=== PATIENT | male | born 1960 | race Caucasian/White ===

== ENCOUNTER 2020-12-24 10:47 | Emergency (ER) | payer OTHER ==
--- OUTSIDE RECORDS SUMMARY | 2020-12-24 10:52 | XMS REPORT | Continuity of Care Document ---
:1960 Author Organization [facility] t Address [address] [place] [address] Care Team Providers Name Role Phone Jose Luis, Freddy Main Attending Clinician Unavailable Su Foy MD Attending Clinician Radiology Attending Clinician Unavailable Lori Naylor Attending Clinician Doctor Unassigned, Name Attending Clinician Unavailable Problems This patient has no known problems. Allergies, Adverse Reactions, Alerts This patient has no known allergies or adverse reactions. Medications This patient has no known medications. Procedures This patient has no known procedures. Encounters Start End Encounter Admission Attending Care Care Encounter Source Date/Time Date/Time Type Type Clinicians Facility Department ID 2020-08-12 2020-08-12 In [place] Nikki Amaya [facility] [id number] 14:40:35 14:55:35 Visit Lab Main [place] [id number] [place] [id number] [facility] [id number] [address] 2020-08-06 2020-08-06 [facility] Joanne Foy [facility] [id number] 14:38:34 23:59:00 Encounter M [place] [id number] [place] [id number] [place] [id number] 2020-06-09 2020-06-09 [facility] Radiology [facility] [id number] 12:35:52 23:59:00 Encounter [place] [id number] [place] [id number] [place] [id number] 2020-04-22 2020-04-22 Emergency [place], [place] [id number] 10:44:00 12:04:00 Katharina Little [id number] [place] [id number] [place] [id number] 2020-04-22 2020-04-22 Orders Doctor [place] [id number] 00:00:00 00:00:00 Only Unassigned, SHAINA [id number] [place] [facility] [id number] Results This patient has no known results.
[2020-12-24] MEDS ORDERED: HYDROCODONE/APAP 10/325 TAB ONE (12:38)
[2020-12-24] MEDS ORDERED: LIDOCAINE 1% MPF 30 ML VIAL ONE (12:38)
--- NOTE | 2020-12-24 14:54 | ER ---
Nurse's Notes [facility] Name: Shayne Jean Baptiste Age: 60 yrs Sex: Male : 1960 Arrival Date: 12/24/2020 Time: 11:13 Bed 27 Private MD: ELIE MICHAEL Diagnosis: Sebaceous cyst Presentation: 12/24 11:14 Chief complaint: Patient states: sent by PCP to get his back abscess checked out x 2 sv weeks. Coronavirus screen: Client denies travel out of the [place] in the last 14 days. At this time, the client does not indicate any symptoms associated with coronavirus-19. Ebola Screen: No symptoms or risks identified at this time. Risk Assessment: Do you want to hurt yourself or someone else? Patient reports no desire to harm self or others. Onset of symptoms was November 2020. 11:14 Method Of Arrival: Ambulatory sv 11:14 Initial Sepsis Screen: Does the patient meet any 2 criteria? No. Patient's initial sv sepsis screen is negative. Does the patient have a suspected source of infection? No. Patient's initial sepsis screen is negative. 11:14 Acuity: DEVI 2 sv Historical: - Allergies: 11:15 Darvon; sv - PMHx: 11:15 Prostate cancer; Cirrhosis of liver; Hep C; sv - PSHx: 11:15 Michael hip replacement; sv - Immunization history:: Client reports having NOT received the Covid vaccine. - Social history:: Smoking status: Patient reports the use of cigarette tobacco products, smokes one-half pack cigarettes per day. Screenin:10 Abuse screen: Denies threats or abuse. Nutritional screening: No deficits noted. ch5 Tuberculosis screening: No symptoms or risk factors identified. Fall Risk None identified. Assessment: 12:10 Pain: Complains of pain in back Quality of pain is described as tender. ch5 Vital Signs: 11:14 BP 205 / 77; Pulse 64; Resp 20; Temp 97.8(TE); Pulse Ox 99% ; Weight 88.45 kg; Height 6 sv ft. 1 in. (185.42 cm); Pain 6/10; 12:20 BP 169 / 80; Pulse 60; Resp 18; Pulse Ox 99% on R/A; Pain 6/10; ch5 15:14 BP 160 / 53; Pulse 62; Resp 20; Pulse Ox 99% on R/A; Pain 0/10; ch5 11:14 Body Mass Index 25.73 (88.45 kg, 185.42 cm) ED Course: 11:13 Patient arrived in ED. am2 11:14 ELIE MICHAEL is Private Physician. am2 11:14 Arm band placed on. sv 11:15 Triage completed. 11:18 [facility] 11:18 Carlos Medina MD is Attending Physician. [facility] 11:19 Justus Dominguez, RN is Primary Nurse. ch5 12:10 Patient has correct armband on for positive identification. Placed in gown. Bed in low ch5 position. Call light in reach. 13:15 Assist provider with I \T\ D: of an abscess on Abscess to Back. ch5 13:15 Patient did not have IV access during this emergency room visit. ch5 15:12 Dressing applied to back. Pt denies needs. ch5 Administered Medications: 12:18 Drug: [place] (HYDROcodone-acetaminophen) 10 mg-325 mg 1 tabs Route: PO; ch5 12:30 Follow up: Response: Pain is decreased ch5 15:09 Drug: Lidocaine (1 %) 20 ml {Note: Administered by Neptali.} Volume: 20 ml; Route: ch5 Infiltration; Site: affected area; 15:14 Follow up: Response: Pain is decreased ch5 Outcome: 14:54 Discharge ordered by . [facility] 15:32 Patient left the ED. ch5 Signatures: Olive Olson RN RN Neptali Lewis PA PA [facility] Trena Elder formerly [facility] Justus Dominguez, RN RN ch5 Corrections: (The following items were deleted from the chart) 11:16 11:14 Temp 97.8F Temporal; sv sv 11:17 11:14 Acuity: DEVI 3 sv sv 11:17 11:14 Pulse 64bpm; Resp 20bpm; Pulse Ox 99%; Temp 97.8F Temporal; 88.45 kg; Height 6 sv ft. 1 in.; BMI: 25.7; Pain 6/10; sv
--- NOTE | 2020-12-24 14:55 | EDPHYS ---
Physician Documentation [facility] Name: Shayne Jean Baptiste Age: 60 yrs Sex: Male : 1960 Arrival Date: 12/24/2020 Time: 11:13 Bed 27 Private MD: ELIE MICHAEL ED Physician Carlos Medina HPI: 12/24 11:40 This 60 yrs old Male presents to ER via Ambulatory with complaints of Abscess.jmm 11:40 the patient presents with a swollen area of the back. Onset: The symptoms/episode jmm began/occurred gradually, 2 week(s) ago. Possible cause(s): unknown. Associated signs and symptoms: Pertinent positives: erythema, swelling, Pertinent negatives: discharge, drainage, fever, shortness of breath. Modifying factors: the symptoms are alleviated by nothing, the symptoms are aggravated by nothing. Historical: - Allergies: 11:15 Darvon; sv - PMHx: 11:15 Prostate cancer; Cirrhosis of liver; Hep C; sv - PSHx: 11:15 Michael hip replacement; sv - Immunization history:: Client reports having NOT received the Covid vaccine. - Social history:: Smoking status: Patient reports the use of cigarette tobacco products, smokes one-half pack cigarettes per day. ROS: 11:40 Constitutional: Negative for fever, chills, and weight loss, Cardiovascular: Negative jmm for chest pain, palpitations, and edema, Respiratory: Negative for shortness of breath, cough, wheezing, and pleuritic chest pain, Abdomen/GI: Negative for abdominal pain, nausea, vomiting, diarrhea, and constipation. 11:40 Skin: Positive for erythema. 11:40 All other systems are negative. Exam: 11:40 Constitutional: This is a well developed, well nourished patient who is awake, alert, jmm and in no acute distress. Head/Face: atraumatic. Eyes: EOMI, no conjunctival erythema appreciated ENT: Moist Mucus Membranes Neck: Trachea midline, Supple Chest/axilla: Normal chest wall appearance and motion. Cardiovascular: Regular rate and rhythm. No edema appreciated Respiratory: Normal respirations, no respiratory distress appreciated Abdomen/GI: Non distended, soft Back: Normal ROM 11:40 Skin: A fluctuant abscess is noted to the left lower lumbar region of the back, no purulent drainage is appreciated, no surrounding induration or erythema appreciated. 11:40 Neuro: Orientation: is normal, Mentation: is normal, Memory: is normal. 11:40 Psych: Behavior/mood is pleasant, cooperative. Vital Signs: 11:14 BP 205 / 77; Pulse 64; Resp 20; Temp 97.8(TE); Pulse Ox 99% ; Weight 88.45 kg; Height 6 sv ft. 1 in. (185.42 cm); Pain 6/10; 12:20 BP 169 / 80; Pulse 60; Resp 18; Pulse Ox 99% on R/A; Pain 6/10; ch5 15:14 BP 160 / 53; Pulse 62; Resp 20; Pulse Ox 99% on R/A; Pain 0/10; ch5 11:14 Body Mass Index 25.73 (88.45 kg, 185.42 cm) sv Procedures: 14:47 I \T\ D: Incision and drainage was performed for an abscess of the back Prepped with [facility] Betadine, Anesthetized with 10 ml's 1% Lidocaine. Incised with #11 blade. Drained moderate amount purulent fluid. Loculations removed. Abscess cavity explored. Packed with iodoform gauze, Dressing: sterile 4x4 gauze, the patient tolerated the procedure well. MDM: 11:20 Patient medically screened. sangeetha 14:46 Data reviewed: vital signs, nurses notes. Counseling: I had a detailed discussion with eryn the patient and/or guardian regarding: the historical points, exam findings, and any diagnostic results supporting the discharge/admit diagnosis, the need for outpatient follow up, to return to the emergency department if symptoms worsen or persist or if there are any questions or concerns that arise at home. 14:48 ED course: Patient is alert nontoxic in appearance in the ED. Large amount of purulent [facility] drainage was drained from the sebaceous cyst. Patient was asked for general surgeon for further evaluation otherwise given strict return precautions. Patient understood and agrees plan of care.. 12/24 11:31 Order name: Incision \T\ Drainage Setup; Complete Time: 12:18 [facility] 12/24 13:28 Order name: Wound Care; Complete Time: 15:13 [facility] Administered Medications: 12:18 Drug: [place] (HYDROcodone-acetaminophen) 10 mg-325 mg 1 tabs Route: PO; ch5 12:30 Follow up: Response: Pain is decreased ch5 15:09 Drug: Lidocaine (1 %) 20 ml {Note: Administered by Neptali.} Volume: 20 ml; Route: ch5 Infiltration; Site: affected area; 15:14 Follow up: Response: Pain is decreased ch5 Disposition: 12/25 05:22 Co-signature as Attending Physician, Carlos Medina MD I agree with the assessment and sangeetha plan of care. Disposition Summary: 12/24/20 14:54 Discharge Ordered Location: Home [facility] Condition: Stable [facility] Diagnosis - Sebaceous cyst [facility] Followup: [facility] - With: Private Physician - When: 2 - 3 days - Reason: Recheck today's complaints, Continuance of care, Re-evaluation by your physician Discharge Instructions: - Discharge Summary Sheet [facility] - Incision and Drainage, Care After [facility] Forms: - Medication Reconciliation Form [facility] - Thank You Letter [facility] - Antibiotic Education [facility] - Prescription Opioid Use [facility] Prescriptions: - Doxycycline Hyclate 100 mg Oral Tablet - take 1 tablet by ORAL route every 12 hours; 20 tablet; Refills: 0, Product [facility] Selection Permitted Signatures: Olive Olson, RN Carlos Dean MD MD cha Mickail, Joel, PA PA [facility] Justus Dominguez RN RN ch5
[2020-12-24 15:41] VITALS: TEMP 97.8; O2SAT 99
[2020-12-24 15:44] VITALS: BP 160/53
== END 2020-12-24 15:32 | disposition home or self-care (01) ==
LOC: ER 10:47
PROC: 0H96XZZ Drainage of Back Skin, External Approach (ICD-10-PCS; principal; 2020-12-24)
DX: L72.3 Sebaceous cyst (principal); F17.210 Nicotine dependence, cigarettes, uncomplicated; Z88.5 Allergy status to narcotic agent
CPT/HCPCS: 99283

== ENCOUNTER 2021-11-09 18:42 | Emergency (ER) | payer OTHER ==
[2021-11-09 20:33] LABS: Absolute Lymphocytes (CBC) 1.9 K/uL (0.7-4.9); Hematocrit 35.9 % (39.6-49.0); Lymphocytes % 14.1 % (15.3-44.8); MCV 91.3 fL (80-100); MPV 9.2 fL (7.6-11.3); RBC Red Blood Cell Count 3.93 M/uL (4.33-5.43)
[2021-11-09] MEDS ORDERED: MORPHINE 4 MG/ML SYR ONE (20:35)
[2021-11-09] MEDS ORDERED: NA CHLORIDE 0.9% 250 ML ONE (20:35)
[2021-11-09] MEDS ORDERED: ONDANSETRON 4 MG/2 ML VIAL ONE (20:35)
[2021-11-09] MEDS ORDERED: NA CHLORIDE 0.9% 1,000 ML ONE (20:35)
[2021-11-09] MEDS ORDERED: NA CHLORIDE 0.9% 100 ML ONE (20:35)
[2021-11-09] MEDS ORDERED: VANCOMYCIN 1 GM/VIAL ONE (20:35)
[2021-11-09] MEDS ORDERED: PIPERACIL/TAZO 3.375 GM VIAL IV ONE (20:36)
[2021-11-09 20:44] LABS: Protime INR 1.24
[2021-11-09 20:45] LABS: Albumin 2.8 g/dL (3.4-5.0); Bilirubin Total 0.4 mg/dL (0.2-1.0); Protein, Total 7.4 g/dL (6.4-8.2)
[2021-11-09 20:49] LABS: Urine Blood Negative (Negative); Urine Glucose Negative (Negative); Urine Protein Negative (Negative)
[2021-11-09] MEDS ORDERED: KCL 20 MEQ/100 mL IVPB 100 ML IV ONE (21:16)
--- NOTE | 2021-11-09 21:42 | EDPHYS ---
Physician Documentation [facility] Name: Shayne Jean Baptiste Age: 61 yrs Sex: Male : 1960 Arrival Date: 11/09/2021 Time: 18:43 Bed 8 Private MD: ED Physician Benjy Cox HPI: 11/09 19:34 This 61 yrs old Male presents to ER via Ambulatory with complaints of Abdominal Pain, mh7 abnormal CT. 19:34 The patient presents with abdominal pain in the left lower quadrant. Onset: The mh7 symptoms/episode began/occurred 1 week(s) ago. The symptoms do not radiate. Associated signs and symptoms: Pertinent positives: diarrhea, Pertinent negatives: blood in stools, fever, nausea, vomiting. The symptoms are described as intermittent, vague, waxing/waning. Modifying factors: The symptoms are alleviated by nothing, the symptoms are aggravated by nothing. Severity of pain: At its worst the pain was moderate 4 day(s) ago, in the emergency department the pain has improved moderately. The patient has been recently seen by a physician: Admitted at OSH and discharged 2 days ago . Historical: - Allergies: 18:46 Darvon; ss - PMHx: 18:46 cirrhosis of liver; HEP C; Prostate Cancer; ss - PSHx: 18:46 Michael hip replacement; ss - Immunization history:: Adult Immunizations unknown. - Social history:: Smoking status: Patient reports the use of cigarette tobacco products, smokes one pack cigarettes per day. ROS: 19:34 Constitutional: Negative for fever, chills, and weight loss, Eyes: Negative for injury, mh7 pain, redness, and discharge, ENT: Negative for injury, pain, and discharge, Neck: Negative for injury, pain, and swelling, Cardiovascular: Negative for chest pain, palpitations, and edema, Respiratory: Negative for shortness of breath, cough, wheezing, and pleuritic chest pain, Back: Negative for injury and pain, : Negative for injury, bleeding, discharge, and swelling, MS/Extremity: Negative for injury and deformity, Skin: Negative for injury, rash, and discoloration, Neuro: Negative for headache, weakness, numbness, tingling, and seizure, Psych: Negative for depression, anxiety, suicide ideation, homicidal ideation, and hallucinations, Allergy/Immunology: Negative for hives, rash, and allergies, Endocrine: Negative for neck swelling, polydipsia, polyuria, polyphagia, and marked weight changes, Hematologic/Lymphatic: Negative for swollen nodes, abnormal bleeding, and unusual bruising. Exam: 19:34 Head/Face: Normocephalic, atraumatic. Eyes: Pupils equal round and reactive to light, mh7 extra-ocular motions intact. Lids and lashes normal. Conjunctiva and sclera are non-icteric and not injected. Cornea within normal limits. Periorbital areas with no swelling, redness, or edema. Neck: Trachea midline, no thyromegaly or masses palpated, and no cervical lymphadenopathy. Supple, full range of motion without nuchal rigidity, or vertebral point tenderness. No Meningismus. Chest/axilla: Normal chest wall appearance and motion. Nontender with no deformity. No lesions are appreciated. Cardiovascular: Regular rate and rhythm with a normal S1 and S2. No gallops, murmurs, or rubs. Normal PMI, no JVD. No pulse deficits. Respiratory: Lungs have equal breath sounds bilaterally, clear to auscultation and percussion. No rales, rhonchi or wheezes noted. No increased work of breathing, no retractions or nasal flaring. 19:34 Back: No spinal tenderness. No costovertebral tenderness. Full range of motion. Skin: Warm, dry with normal turgor. Normal color with no rashes, no lesions, and no evidence of cellulitis. MS/ Extremity: Pulses equal, no cyanosis. Neurovascular intact. Full, normal range of motion. Neuro: Awake and alert, GCS 15, oriented to person, place, time, and situation. Cranial nerves II-XII grossly intact. Motor strength 5/5 in all extremities. Sensory grossly intact. Cerebellar exam normal. Normal gait. Psych: Awake, alert, with orientation to person, place and time. Behavior, mood, and affect are within normal limits. 19:34 Constitutional: The patient appears in no acute distress, alert, awake, uncomfortable. 19:34 Abdomen/GI: Inspection: abdomen appears normal, Bowel sounds: normal, in all quadrants, Palpation: moderate abdominal tenderness, in the left lower quadrant, mass, is not appreciated, rebound tenderness, is not appreciated, voluntary guarding, is not appreciated, involuntary guarding, is not appreciated, no appreciated organomegaly, Indicators: McBurney's point is not tender, Stevens's sign is negative, Rovsing's sign is negative, Obturator sign is negative, Psoas sign is negative, Liver: no appreciated palpable abnormalities, Hernia: not appreciated. Vital Signs: 19:03 BP 145 / 71; Pulse 77; Resp 18; Temp 97.8; Pulse Ox 97% on R/A; Weight 86.18 kg; Height ph 6 ft. 1 in. (185.42 cm); 19:14 BP 142 / 72; Pulse 82; Resp 18 S; Pulse Ox 98% on R/A; aa9 21:23 BP 141 / 73; Pulse 70; Resp 18; Pulse Ox 96% on R/A; kd3 22:49 BP 140 / 63; Pulse 70; Resp 18 S; Pulse Ox 95% on R/A; as6 19:03 Body Mass Index 25.07 (86.18 kg, 185.42 cm) ph MDM: 21:33 Differential diagnosis: bowel obstruction, diverticulitis, Irritable bowel syndrome, mh7 non-specific abd pain, Perf. Duodenal Ulcer, Pyelonephritis, Ureterolithiasis, urinary tract infection. Data reviewed: vital signs, nurses notes, old medical records, lab test result(s), CBC, electrolytes, EKG, CT Abdomen/pelvis done outpatient here. Data interpreted: Pulse oximetry: on room air is 96 %. Interpretation: normal. Counseling: I had a detailed discussion with the patient and/or guardian regarding: the historical points, exam findings, and any diagnostic results supporting the discharge/admit diagnosis, lab results, radiology results, the need to transfer to another facility, for higher level of care, [facility] does not immediately have the required specialist. Response to treatment: the patient's symptoms have mildly improved after treatment. Physician consultation: Dirk Stanley MD was contacted at 19:50, regarding patient's condition, after a discussion of the case, a recommendation for transfer for higher level of care is made, Recommended transfer for interventional radiology treatment for this and will need colorectal surgery follow up.. ED course: Patient requested transfer to [facility] but no bed availability, then [facility] but no bed availability. He then agreed to try transfer [facility] . 21:42 Patient medically screened. mh7 11/09 18:44 Order name: CBC with Diff; Complete Time: 20:39 11/09 18:44 Order name: CMP; Complete Time: 20:55 11/09 18:44 Order name: Lipase; Complete Time: 20:55 11/09 18:44 Order name: SARS-COV-2 RT PCR (Document "Date of Onset" if Symptomatic); Complete Time: rn 21:31 11/09 18:44 Order name: Protime (+inr); Complete Time: 20:55 11/09 18:44 Order name: Ptt, Activated; Complete Time: 20:55 19:51 Order name: Blood Culture [facility] 11/09 19:51 Order name: Lactate; Complete Time: 20:55 [facility] 11/09 20:50 Order name: Urine Dipstick-Ancillary; Complete Time: 20:55 ED[facility] 11/09 18:44 Order name: IV Saline Lock; Complete Time: 20:24 11/09 18:44 Order name: Labs collected and sent; Complete Time: 20:24 11/09 19:24 Order name: EKG; Complete Time: 19:24 [facility] 11/09 19:24 Order name: EKG - Nurse/Tech; Complete Time: 21:03 [facility] 11/09 19:25 Order name: Urine Dipstick-Ancillary (obtain specimen); Complete Time: 20:48 [facility] Administered Medications: 20:48 Drug: morphine 4 mg Route: IVP; Infused Over: 4 mins; Site: left antecubital; kd3 21:02 Follow up: Response: No adverse reaction kd3 20:48 Drug: Zofran (Ondansetron) 4 mg Route: IVP; Site: left antecubital; kd3 21:02 Follow up: Response: No adverse reaction kd3 22:58 Follow up: Response: No adverse reaction kd3 20:48 Drug: Zosyn (piperacillin-tazobactam) 3.375 grams Route: IVPB; Infused Over: 60 mins; kd3 Site: left antecubital; 21:02 Follow up: Response: No adverse reaction; IV Status: Completed infusion kd3 20:49 Drug: NS 0.9% 1000 ml Route: IV; Rate: 1000 ml; Site: left antecubital; kd3 23:22 Follow up: IV Status: Completed infusion kd3 21:02 Drug: vancoMYCIN 1 grams Route: IVPB; Infused Over: 2 hrs; Site: left antecubital; kd3 22:58 Follow up: Response: No adverse reaction; IV Status: Completed infusion kd3 21:13 Drug: Potassium Chloride 20 mEq Route: IV; Rate: per protocol; Site: left antecubital; kd3 22:57 Follow up: Response: No adverse reaction; IV Status: Completed infusion kd3 23:22 Follow up: IV Status: Completed infusion kd3 Disposition Summary: 11/09/21 21:42 Transfer Ordered Transfer Location: [place] [id number] Reason: [facility] care [facility] Condition: Stable [facility] Problem: [facility] Symptoms: are unchanged [facility] Accepting Physician: [facility](11/09/21 23:22) kd3 Diagnosis - Colon abscess with pneumoperitoneum [facility] Forms: - Medication Reconciliation Form [facility] - SBAR form 7 Signatures: Dispatcher [employer] EDLalo Mullins MD MD rn Smirch, Shelby, RN RN ss Hall, Patricia, RN RN ph Holmes, Maurice, MD MD Bina Luu RN RN kd3 Corrections: (The following items were deleted from the chart) 21:49 21:42 Dr. Hughes [email or web address] 23:22 21:49 [place] [id number] kd3
--- NOTE | 2021-11-09 21:42 | ER ---
Nurse's Notes [facility] Name: Shayne Jean Baptiste Age: 61 yrs Sex: Male : 1960 Arrival Date: 11/09/2021 Time: 18:43 Bed 8 Private MD: Diagnosis: Colon abscess with pneumoperitoneum Presentation: 11/09 18:44 Chief complaint: Patient states: Outpatient CT showed possible "colon abscess with free ss air.". Coronavirus screen: Client denies travel out of the [place] in the last 14 days. Ebola Screen: Patient denies exposure to infectious person. Patient denies travel to an Ebola-affected area in the 21 days before illness onset. 18:44 Method Of Arrival: Ambulatory ss 18:44 Acuity: DEVI 3 ss 19:05 Initial Sepsis Screen: Does the patient meet any 2 criteria? No. Patient's initial ph sepsis screen is negative. Does the patient have a suspected source of infection? Yes: Acute abdominal pain. Risk Assessment: Do you want to hurt yourself or someone else? Patient reports no desire to harm self or others. Onset of symptoms was November 09, 2021. Triage Assessment: 19:04 General: Appears in no apparent distress. uncomfortable, Behavior is calm, cooperative, ph appropriate for age, Denies fever. Pain: Complains of pain in left lower quadrant. Neuro: Level of Consciousness is awake, alert, obeys commands, Oriented to person, place, time, situation. Cardiovascular: Capillary refill < 3 seconds in bilateral fingers Patient's skin is warm and dry. Respiratory: Airway is patent Respiratory effort is even, unlabored. GI: Abdomen is round Reports lower abdominal pain. Derm: Skin is pink, warm \\T\\ dry. Musculoskeletal: Circulation, motion, and sensation intact. Range of motion: intact in all extremities. Historical: - Allergies: 18:46 Darvon; ss - PMHx: 18:46 cirrhosis of liver; HEP C; Prostate Cancer; ss - PSHx: 18:46 Michael hip replacement; ss - Immunization history:: Adult Immunizations unknown. - Social history:: Smoking status: Patient reports the use of cigarette tobacco products, smokes one pack cigarettes per day. Screenin:05 Abuse screen: Denies threats or abuse. Denies injuries from another. Nutritional ph screening: No deficits noted. Tuberculosis screening: No symptoms or risk factors identified. Fall Risk None identified. Assessment: 19:11 General: Appears in no apparent distress. uncomfortable, Behavior is calm, cooperative, aa9 states I went to do a follow up appt with my dr for diverticulitis. They told me to come here because of an abscess. Pain: Complains of pain in left lower quadrant Pain currently is 7 out of 10 on a pain scale. 21:24 Reassessment: Patient appears in no apparent distress at this time. Patient and/or kd3 family updated on plan of care and expected duration. Pain level reassessed. Patient is alert, oriented x 3, equal unlabored respirations, skin warm/dry/pink. Patient states feeling better. Patient states symptoms have improved. Vital Signs: 19:03 BP 145 / 71; Pulse 77; Resp 18; Temp 97.8; Pulse Ox 97% on R/A; Weight 86.18 kg; Height ph 6 ft. 1 in. (185.42 cm); 19:14 BP 142 / 72; Pulse 82; Resp 18 S; Pulse Ox 98% on R/A; aa9 21:23 BP 141 / 73; Pulse 70; Resp 18; Pulse Ox 96% on R/A; kd3 22:49 BP 140 / 63; Pulse 70; Resp 18 S; Pulse Ox 95% on R/A; as6 19:03 Body Mass Index 25.07 (86.18 kg, 185.42 cm) ph ED Course: 18:43 Patient arrived in ED. ss 18:46 Triage completed. ss 19:03 Benjy Cox MD is Attending Physician. mh7 19:03 Arm band placed on Patient placed in an exam room, on a stretcher, on pulse oximetry. ph 19:05 Patient has correct armband on for positive identification. Bed in low position. Call light in reach. Side rails up X 1. Pulse ox on. NIBP on. Door closed. Noise minimized. 19:07 Jung Bello, GERALDO is Primary Nurse. as6 20:19 initiated a transfer with Cami Callejas from [facility] Transfer Center. mw2 20:24 Lipase Sent. kd3 20:24 CMP Sent. kd3 20:24 CBC with Diff Sent. kd3 20:24 SARS-COV-2 RT PCR (Document "Date of Onset" if Symptomatic) Sent. kd3 20:24 Ptt, Activated Sent. kd3 20:24 Protime (+inr) Sent. kd3 20:25 Lactate Sent. kd3 20:25 Blood Culture Adult (2) Sent. kd3 20:37 [facility] denied due to [place]. mw2 20:39 initiated a transfer with Antwan from [facility] Transfer Center. mw2 20:50 [facility] denied due to capacity. mw2 20:55 initiated a transfer with Arleneamanda Rosado from [facility] Transfer [place]. mw2 21:[address] Cox with Dr. Fatima from [facility]. mw2 21:[address] Cox with the Hospitalist from [facility]. mw2 22:31 administrative approval given by Arlene Rosado/ patient has been accepted to [address] bed 669/ Dr. Guzmán accepted the patient in transfer/report to be called to [phone]. 23:21 No provider procedures requiring assistance completed. Inserted saline lock: 22 gauge kd3 in left antecubital area, using aseptic technique. Blood collected. Patient transferred, IV remains in place. Administered Medications: 20:48 Drug: morphine 4 mg Route: IVP; Infused Over: 4 mins; Site: left antecubital; kd3 21:02 Follow up: Response: No adverse reaction kd3 20:48 Drug: Zofran (Ondansetron) 4 mg Route: IVP; Site: left antecubital; kd3 21:02 Follow up: Response: No adverse reaction kd3 22:58 Follow up: Response: No adverse reaction kd3 20:48 Drug: Zosyn (piperacillin-tazobactam) 3.375 grams Route: IVPB; Infused Over: 60 mins; kd3 Site: left antecubital; 21:02 Follow up: Response: No adverse reaction; IV Status: Completed infusion kd3 20:49 Drug: NS 0.9% 1000 ml Route: IV; Rate: 1000 ml; Site: left antecubital; kd3 23:22 Follow up: IV Status: Completed infusion kd3 21:02 Drug: vancoMYCIN 1 grams Route: IVPB; Infused Over: 2 hrs; Site: left antecubital; kd3 22:58 Follow up: Response: No adverse reaction; IV Status: Completed infusion kd3 21:13 Drug: Potassium Chloride 20 mEq Route: IV; Rate: per protocol; Site: left antecubital; kd3 22:57 Follow up: Response: No adverse reaction; IV Status: Completed infusion kd3 23:22 Follow up: IV Status: Completed infusion kd3 Medication: 19:06 VIS not applicable for this client. ph Outcome: 21:42 ER care complete, transfer ordered by . [facility] 23:21 Transferred by ground EMS kd3 23:21 Condition: stable 23:21 Discharge instructions given to patient, family, Instructed on discharge instructions, follow up and referral plans. Demonstrated understanding of instructions, follow-up care. 23:22 Patient left the ED. kd3 Signatures: Liyah Tristan RN RN Ana Wilcox RN RN Massiel Castro [facility] Benjy Cox MD MD 7 Jung Bello RN RN as6 Bina Herrera RN RN kd3 Gardenia Diaz RN RN aa9
[2021-11-09 23:34] VITALS: TEMP 97.8
[2021-11-09 23:39] VITALS: BP 140/63; O2SAT 95
--- NOTE | 2021-11-10 07:49 | EKG ---
Test Date: 2021-11-09 Test Time: 20:59:33 Restaurant Bartender: [place] MEASUREMENT RESULTS: Intervals: Rate: 69 MD: 142 QRSD: 90 QT: 410 QTc: 439 Friedens: P: 60 MD: 142 QRS: 71 T: 70 INTERPRETIVE STATEMENTS: Sinus rhythm with premature atrial complexes Otherwise normal ECG Compared to ECG 03/11/2014 09:25:23 Atrial premature complex(es) now present Sinus arrhythmia no longer present T-wave abnormality no longer present Electronically Signed On 11-10-21 07:48:15 CDT by Star Sage
== END 2021-11-09 23:22 | disposition short-term general hospital (02) ==
LOC: ER 18:42
DX: K63.0 Abscess of intestine (principal); R14.0 Abdominal distension (gaseous); F17.210 Nicotine dependence, cigarettes, uncomplicated; Z20.822 Contact with and (suspected) exposure to COVID-19; Z88.5 Allergy status to narcotic agent; Z85.46 Personal history of malignant neoplasm of prostate
CPT/HCPCS: 96365; 96361; 93005; 87040 ×2; 85025; 36415; 85610; 83605; 85730; 81003; 83690; 80053; 96375; 99285; U0003; J2543; J3480; J3370; J7050; J7030; J2405